=== PATIENT | female | born 1940 | race Two or more races ===

== ENCOUNTER 2024-05-17 14:40 | Emergency (ER) | payer OTHER ==
[~2024-05-17] VITALS: Ht 167.6 cm; Wt 59.0 kg
[2024-05-17] MEDS ORDERED: ATORVASTATIN CA10 MG PO (15:14)
[2024-05-17] MEDS ORDERED: TOPROL XL25 M1 PO (15:14)
[2024-05-17] MEDS ORDERED: XARELTO10 MG PO (15:14)
[2024-05-17] MEDS ORDERED: ACETAMINOPHEN 500 MG GEL..CAP PO STA (15:41)
[2024-05-17] MEDS ORDERED: ACETAMINOPHEN 500 MG GEL..CAP PO ONE (15:47)
[2024-05-17 16:20] LABS: HEMATOCRIT 36.5 % (36.0-45.00); HEMOGLOBIN 12.3 g/dL (12.0-15.00); MEAN CELL VOLUME 93.9 fL (80.00-100.00); MEAN CORPUSCULAR HEMOGLOBIN 31.7 pg (27.00-32.0); MEAN CORPUSCULAR HGB CONC 33.8 g/dl (32.0-36.0); PLATELET COUNT 200 K/uL (150-450); RED BLOOD COUNT 3.88 M/uL (4.00-6.00); RED CELL DISTRIBUTION WIDTH 13.3 % (11.5-14.5)
[2024-05-17 16:26] LABS: URINE APPEARANCE Cloudy; URINE BILIRRUBIN Negative (NEGATIVE); URINE BLOOD Large; URINE COLOR Orange; URINE GLUCOSE Negative (NEGATIVE); URINE KETONE 15 (NEGATIVE); URINE LEUKOCYTE Small; URINE NITRATE Negative
[2024-05-17 16:33] LABS: URINE BACTERIA 55.4 uL (0.0-1933); URINE EPITHELIAL CELLS 5.4 uL (0.0-38.8); URINE RBC 3683.5 uL (0.0-20.8); URINE WBC 36.9 uL (0.0-23.2)
[2024-05-17 16:48] LABS: ALBUMIN 4.1 gm/dL (3.4-5.0); BILIRUBIN TOTAL 0.7 mg/dL (0.3-1.2); CALCIUM 9.2 mg/dL (8.5-10.1); CREATININE SERUM 0.68 mg/dL (0.55-1.02); GFR 82.84; GLOBULINA 3.2 G/DL (2.4-3.5); POTASSIUM 3.33 mEq/L (3.5-5.1); TOTAL PROTEIN 7.3 gm/dL (6.4-8.2)
[2024-05-17 17:53] LABS: URINE PROTEIN 100 (NEGATIVE)
[2024-05-17] MEDS ORDERED: TRAM1TAB98 PO (18:19)
[2024-05-17] MEDS ORDERED: LEVOFLOXACIN500 MG PO (18:19)
== END 2024-05-17 18:36 | disposition home or self-care (01) ==
LOC: ER 14:41
PROVIDERS: General Practice
DX: N21.1 Calculus in urethra (principal); N39.0 Urinary tract infection, site not specified; I10 Essential (primary) hypertension; N20.0 Calculus of kidney